=== PATIENT | female | born 1980 | race Caucasian/White ===

== ENCOUNTER → 2016-09-08 | Outpatient (CLI) | payer OTHER | LOC: KOH-I 16:00 | DX: M54.2 Cervicalgia (principal); I10 Essential (primary) hypertension; M48.07 Spinal stenosis, lumbosacral region; M25.78 Osteophyte, vertebrae | CPT/HCPCS: 72050; 72110 ==

== ENCOUNTER 2021-02-15 18:54 | Emergency (ER) | payer OTHER ==
[~2021-02-15 18:54] MED LIST: BACTRIM DS TAB1 EACH PO; KEFLEX500 MG PO
[2021-02-15 20:54] LABS: HEMOGLOBIN 9.5 gm/dl (12.3-15.3); RED BLOOD COUNT 4.36 M/UL (4.00-5.10); WHITE BLOOD COUNT 16.8 K/UL (4.5-11.0)
[2021-02-15 21:21] LABS: BUN/CREATININE RATIO 11 (0-10)
[2021-02-15] MEDS ORDERED: CEPHALEXIN500 MG PO (22:57)
== END 2021-02-15 23:05 | disposition home or self-care (01) ==
LOC: ER1 18:54
PROVIDERS: Family Medicine
DX: S16.1XXA Strain of muscle, fascia and tendon at neck level, initial encounter (principal); S83.91XA Sprain of unspecified site of right knee, initial encounter; S39.012A Strain of muscle, fascia and tendon of lower back, initial encounter; S80.11XA Contusion of right lower leg, initial encounter; F17.200 Nicotine dependence, unspecified, uncomplicated; V49.40XA Driver injured in collision with unspecified motor vehicles in traffic accident, initial encounter; Z88.6 Allergy status to analgesic agent; Z23 Encounter for immunization
CPT/HCPCS: 70450; 71045; 71260; 72125; 72170; 73560; 73590; 73600; 80053; 82550; 82553; 83874; 84484; 85025; 90471; 90715; 93005; 96374; 96375; 99285; J2270; J2405; Q9967